=== PATIENT | female | born 1965 | race Caucasian/White ===

== ENCOUNTER → 2017-01-27 | Outpatient (CLI) | payer OTHER ==
[~2017-01-27] MED LIST: ESTROVEN 155 M155 MG PO; IMODIUM A-D2 M2 PO; NAPROXEN500 MG PO; NORCO 5/3251 TABLET PO; NORVASC10 MG PO; PROTONIX40 MG PO; TOPROL XL50 MG PO; TRAMADOL HCL50 MG PO; VALIUM2 MG PO; ZANTAC150 MG PO
== END | disposition home or self-care (01) ==
LOC: CDC 08:00
DX: Z01.810 Encounter for preprocedural cardiovascular examination (principal)
CPT/HCPCS: 93000

== ENCOUNTER 2017-02-02 08:27 | Day surgery (SDC) | payer OTHER ==
[~2017-02-02] VITALS: Ht 175.3 cm; Wt 86.2 kg
[2017-02-02 09:12] VITALS: BP 141/83
[2017-02-02] MEDS ORDERED: HYDROCODON-ACE1 EAC7 PO (11:50)
[2017-02-02] MEDS ORDERED: IBUPROFEN800 MG PO (11:50)
[2017-02-02 13:15] VITALS: BP 137/81
[2017-02-02 14:11] VITALS: BP 121/78
== END 2017-02-02 14:18 | disposition home or self-care (01) ==
LOC: SDC 08:27
PROC: 0UT74ZZ Resection of Bilateral Fallopian Tubes, Percutaneous Endoscopic Approach (ICD-10-PCS; principal; 2017-02-02)
DX: N70.11 Chronic salpingitis (principal); K42.9 Umbilical hernia without obstruction or gangrene; N80.3 Endometriosis of pelvic peritoneum; N82.3 Fistula of vagina to large intestine; I10 Essential (primary) hypertension; K21.9 Gastro-esophageal reflux disease without esophagitis; K50.90 Crohn's disease, unspecified, without complications; Z83.3 Family history of diabetes mellitus; Z80.0 Family history of malignant neoplasm of digestive organs
CPT/HCPCS: 88304; J0690; J1100; J1885; J2250; J2405; J2710; J3010